=== PATIENT | male | born 1940 | race Caucasian/White ===

== ENCOUNTER 2024-11-20 10:21 | Emergency (ER) | payer OTHER, MEDICARE ==
[~2024-11-20] VITALS: Ht 170.2 cm; Wt 83.3 kg
[2024-11-20 10:23] VITALS: TEMP 98.3
--- NOTE | 2024-11-20 11:20 | Physician Documentation ---
History of Present Illness ~ Chief Complaint: Leg Pain Stated Complaint: POSS DVT Time Seen by MD: 10:59 OK to notify your PCP?: Yes Primary Medical Doctor: [facility] Source: patient Mode of Arrival: POV, Wheelchair Exam Limitations: no limitations HPI 84 y/o male BIB son due to concern about "blood clot" in right leg. Patient states that he woke up about five days ago and had pain in his knee. He states pain is mostly over the medial aspect of his knee joint. Pain is worse when he weight bears on his right leg. He states at the same time he developed the pain in his knee his leg was swollen. He went to see his primary care provider today who sent him over here to rule out a DVT. No history of DVT. No recent surgeries or periods of inactivity. Denies calf pain, pain behind his knee joint or thigh. Denies chest pain and SOB. Denies any skin color changes of his leg. No precipitating injury or event. Tetanus witin 5 years: Yes Medication Reconciliation Allergies: Coded Allergies: No Known Allergies (Unverified , 11/20/24) Past Medical History Past Medical History: Peripheral Neuropathy Past Surgical History: noncontributory Drug Use: none Lives In: Home Occupation: retired Review of Systems All Other Systems at this time: Reviewed and Negative Physical Exam Vital Signs: Temperature: 98.3, Source: Oral, Heart Rate: 66, Respiratory Rate: 16, BP: 120/75, Pulse Oximetry: 97, Weight: 83.300 Oxygen Flow Rate: 0 Physical Exam GENERAL: Alert, no acute distress. HEENT: NCAT, EOMI, PERRL, moist oral mucosa. NECK: Supple, trachea midline. CARDIAC: Regular rate and rhythm, no murmurs, rubs, or gallops. Equal distal pulses. No lower extremity edema, cap refill less than 2 seconds. RESPIRATORY: Equal breath sounds, clear to auscultation bilaterally, no respiratory distress. MUSCULOSKELETAL: RLE: PITTING EDEMA FOOT TO MID TIBIA, TRACE AT PROXIMAL TIBIA AND KNEE, NORMAL COLOR, TTP OVER MEDIAL ANTERIOR JOINT SPACE, AROM OF KNEE JOINT REDUCED DUE TO PAIN. NTTP AT POPLITEAL FOSSA, CALF OR THIGH. LLE: TRACE EDEMA, NORMAL COLOR, AROM OF KNEE JOINT FULL. NEUROLOGICAL: Awake, alert, and oriented x 3. SKIN: Warm/dry, no pallor, no rash. PSYCH: Alert and appropriate. Affect congruent with mood. Speech is clear. Good eye contact. Progress Results/Orders Results/Orders Orders - LAURA GONZALEZ Vl Venous (11/20/24 10:34) Knee, Complete (11/20/24 11:03) Completed Orders - LAURA GONZALEZ Knee, Complete (11/20/24 11:03) Methylprednisolone Sod Succ (Solumedrol (11/20/24 11:50) Vital Signs 11/20/24 11/20/24 10:23 11:01 Temp 98.3 Pulse 66 Resp 16 16 B/P (MAP) 120/75 Pulse Ox 97 O2 Flow Rate 0 EKG/XRAY/CT/US/VASC/MRI Bone/Soft Tissue X-Ray (Ext.) : Interpreted By: self Views: 2 VIEW Indication: pain Location: knee Impression: normal; No: soft tissue swelling, fracture Vascular : Vascular Study: lower extremity venous Impression negative for DVT Medical Decision Making Knee Diff Dx:Considerations: Include: Abrasion, Arthritis, Contusion, DJD, Fracture-femur, Fracture-fibula, Fracture-patella, Fracture-tibia, Gout, Hematoma, Laceration, Meniscus injury, Neurovascular injury, Open fracture, Rheumatoid arthritis, Septic, Sprain, Sprain-MCL, Sprain-LCL, Sprain-ACL, Sprain-PCL Additional Comment Reviewed results of ultrasound with patient and son as well as preliminary x-ray results based off of my interpretation as I had not yet been read by radiologist. Son states that his doctor at the [facility] wanted him to be treated for a gout exacerbation if the ultrasound was negative for DVT. Patient is already on allopurinol. Departure Time of Disposition: 12:02 Disposition: 01 HOME / SELF CARE / HOMELESS Impression: Primary Impression: Knee pain, right Qualified Codes: M25.561 - Pain in right knee Additional Impression: Right leg swelling Condition: Stable Discharge Instructions: Gout, [id number] Additional Instructions: f/u with provider at [facility], return to ER if any new concerning symptoms Referrals: NO PRIMARY CARE PROVIDER (PCP) Prescriptions Methylprednisolone (Medrol Dosepak) 4 Mg Tab.ds.pk 0 PO UD, #21 TAB 0 Refills take 6 Pills Day 1, 5 Pills Day 2, 4 Pills Day 3, 3 Pills Day 4, 2 Pills Day 5 and 1 pill Day 6 Prov: LAURA GONZALEZ 11/20/24 Education Educated: Patient Educated regarding: diagnosis, treatment, need for follow up Signature Scribe Signature: X Attestation: LAURA MONTOYA November 20, 2024 11:20
[2024-11-20] MEDS ORDERED: methylPREDNISolone sod succ 125mg/2ml vial IM ONE (11:50)
--- NOTE | 2024-11-20 11:58 | RADIOLOGY REPORT ---
Indication: RIGHT KNEE PAIN Technique: 3 views right knee Comparison: None FINDINGS/IMPRESSION: No radiographic evidence for acute fracture or dislocation. No significant soft tissue edema. No radi opaque foreign body. Large enthesophyte at the patellar tendon insertion upon the patella measuring 2.2 cm. Atherosclerotic disease.
[2024-11-20] MEDS ORDERED: METH4TAB81 PO (12:03)
[2024-11-20] MEDS: methylPREDNISolone sod succ/PF 40mg inj. IM ONE (12:09)
[2024-11-20 12:19] VITALS: BP 140/75; PULSE 78; RESP 16; O2SAT 99
--- NOTE | 2024-11-20 12:23 | VASCULAR REPORT ---
EXAM: VASC VL VENOUS HISTORY: Swelling COMPARISON: None TECHNIQUE: Duplex Doppler evaluation of the deep venous system of the right lower extremity from the common femoral vein to the popliteal vein including color Doppler and spectral/pulsed waveform keyshawn sis was performed. FINDINGS: The common femoral vein demonstrates appropriate compressibility and waveform variability . There is compressibility/patency of the great saphenous vein at the proximal thigh . The femoral vein demonstr ates appropriate compressibility and waveform variability . The deep femoral vein demonstrates approp riate compressibility and waveform variability . The popliteal vein demonstrates appropriate compress ibility and waveform variability . There is normal compressibility at the tibioperoneal trunk. Fluid in the right popliteal fossa which may represent a Dean's cyst versus joint effusion measuring up to 2.4 cm. Subcutaneous tissue edema. IMPRESSION: 1. No right femoropopliteal venous thrombosis. 2. Fluid in the right popliteal fossa which may represent a Dean's cyst versus joint effusion measur ing up to 2.4 cm. Subcutaneous tissue edema. 3. If clinical concern/symptoms persist or worsen, short-interval follow-up study is suggested.
== END 2024-11-20 12:17 | disposition home or self-care (01) ==
LOC: ER 10:22
DX: M25.561 Pain in right knee (principal); M79.89 Other specified soft tissue disorders
CPT/HCPCS: 73564; 93971; 96372; 99285; J2919